=== PATIENT | female | born 2000 | race Caucasian/White ===

== ENCOUNTER 2024-08-08 11:22 | Emergency (ER) | payer BC, SELFPAY ==
[2024-08-08 11:47] VITALS: BP 124/73
--- NOTE | 2024-08-08 14:33 | ED.GENMED ---
History of Present Illness
General
Chief Complaint: Skin Problem
Source: patient
Time Seen by Provider: 08/08/24 14:15
History of Present Illness
History of Present Illness:
24-year-old female presenting emergency department for evaluation after sustaining a cut to her left lower leg about 3 weeks ago, went to urgent care who placed Dermabond on the area and gave the patient a weeks course of Keflex for infection
prevention, completed the medication 2 days ago but today felt that the area started to look a little bit more red again. Patient states that she was feeling unwell and feverish today and was concerned for possible infection. Patient did not check
her temperature prior to arrival. No other URI-like symptoms. No known sick contacts or recent travel.
Past History
Past History
ED Past Medical History: Other (Migraines, POTS, endometriosis)
ED Past Surgical History: Tonsilectomy and Other
Social History
Tobacco: Non-smoker
Alcohol: Occasional
Drug: None
Personal: Single
Living: with family
Review of Systems
Review of Systems
All Other Systems: ROS reviewed and negative except as documented in HPI and ROS
Phy Exam
Physical Exam
Physical Exam:
GENERAL: Alert , in no apparent distress
EYE: conjunctiva clear
Head: Normocephalic atraumatic
NECK: Supple,
ENT: mmm.
LUNGS: no acute respiratory distress
NEUROLOGICAL: Alert and oriented
SKIN: Warm and dry, small 7 mm abrasion with scab overlying with the borders having very slight erythema consistent with normal wound healing/mild inflammatory response
MSK: Warm and well perfused
PSYCH: Normal and appropriate interaction.
Scores
Heart Failure Risk
Heart Failure Risk Score: Not Applicable
Heart Score for Chest Pain Patients
STEMI patient?: Not applicable
Withdrawal Assessment of Alcohol
Withdrawal Assessment Completed?: Not applicable
Course
Orders/Labs/Results
Orders:
08/08/24 14:21
08/08/24 14:21
Vital Signs
Initial and Last Documented VS:
Initial Vital Signs
Temp Pulse Resp BP Pulse Ox
98.5 F 77 16 124/73 100
08/08/24 11:47 08/08/24 11:47 08/08/24 11:47 08/08/24 11:47 08/08/24 11:47
Last Documented Vital Signs
Temp Pulse Resp BP Pulse Ox
98.5 F 78 18 120/70 98
08/08/24 11:47 08/08/24 14:50 08/08/24 14:50 08/08/24 14:50 08/08/24 14:50
MDM/Problems Addressed
Differential Diagnosis Includes:
Well-healing abrasion, I do not have concern for cellulitis, question viral etiology for other flulike illness
MDM/Problems Addressed:
Otherwise well-appearing 24-year-old female presenting to the emergency department for evaluation of what she believes to be possible infection to the left lower extremity. The abrasion is well-healing, small scab and erythema is only along the
borders of the wound which appeared normal and without sign of infection. Initially offered the patient labs and COVID/flu testing which she initially agreed to but then told nursing she did not wish to have this and preferred to go home.
Counseled patient on wound care. Otherwise stable for discharge home.
*Pulse Oximetry
Patient hypoxic: no
*Critical Care Note
Total Time (30-74mins, 75-104mins- exclusive of procedures): Not Applicable
ED Attending Note
-
Portions of this chart may have been created with voice recognition software.� Occasional wrong word or��sound alike� substitutions may have occurred due to the inherent limitations of voice recognition software.
Discharge Plan
Departure
Patient Disposition: Home (Routine Discharge)
Date of Disposition: 08/08/24
Time of Disposition: 14:33
Patient with high blood pressure during this ER visit?: No
Discharge Problem:
Abrasion of left lower extremity
Instructions: Wound Care (DC)
Interventions
Interventions:
*Risk Screen - Suicide Last Done: 08/08/24 11:47
*General Assessment Last Done: 08/08/24 11:47
*Neglect/Abuse Screening Last Done: 08/08/24 11:47
*ED COVID-19 Vaccine History Last Done: 08/08/24 11:47
*Nursing Disposition Last Done: 08/08/24 14:50
ED-Skin Assessment Last Done: 08/08/24 12:51
Discharge Date and Time
Discharge Date/Time: 08/08/24 14:53
Print Language: AZERI
[2024-08-08 14:50] VITALS: BP 120/70
== END 2024-08-08 14:53 | disposition home or self-care (01) ==
LOC: EMR 11:22
PROVIDERS: EMERGENCY PHYSICIAN Emergency Medicine; FAMILY PHYSICIAN Physician Assistant
DX: S80.812A Abrasion, left lower leg, initial encounter (principal); W45.8XXA Other foreign body or object entering through skin, initial encounter
CPT/HCPCS: 99282

== ENCOUNTER 2024-09-09 05:52 | Emergency (ER) | payer BC, SELFPAY ==
[2024-09-09 05:57] VITALS: BP 120/80
[2024-09-09 06:18] VITALS: BMI 20.8
[2024-09-09 06:20] VITALS: BP 128/75
--- NOTE | 2024-09-09 06:52 | ED.GENMED ---
History of Present Illness
General
Chief Complaint: Cold/Flu/URI Symptoms
Source: patient
Exam Limitations: none
Time Seen by Provider: 09/09/24 06:43
History of Present Illness
History of Present Illness:
See MDM
Past History
Past History
ED Past Medical History: Other (Migraines, POTS, endometriosis)
ED Past Surgical History: Tonsilectomy and Other
Social History
Tobacco: Non-smoker
Alcohol: Occasional
Drug: None
Personal: Single
Living: with family
Phy Exam
Physical Exam
Physical Exam:
See MDM
Course
Orders/Labs/Results
Orders:
Orders
09/09/24 06:12
COVID-19 Antigen Urgent
Source: Nasal Swab
Influenza A+B Rapid Molecular Urgent
BELINDA Source: Nasal Swab
Specimen Description:
09/09/24 06:52
0.9% Sodium Chloride 1000 ml [Nss] 1,000 ml IV BOLUS
Dexamethasone Sod Phosphate [Decadron] 10 mg IV NOW STA
Ketorolac [Toradol] 30 mg IV NOW STA
Vital Signs
Initial and Last Documented VS:
Initial Vital Signs
Temp Pulse Resp BP Pulse Ox
98.7 F 126 26 120/80 99
09/09/24 05:57 09/09/24 05:57 09/09/24 05:57 09/09/24 05:57 09/09/24 05:57
Last Documented Vital Signs
Temp Pulse Resp BP Pulse Ox
98.4 F 120 19 104/59 98
09/09/24 07:27 09/09/24 07:15 09/09/24 07:15 09/09/24 07:00 09/09/24 07:15
MDM/Problems Addressed
Differential Diagnosis Includes:
HPI and MDM Narrative:
24-year-old female presenting for evaluation of persistent cough and congestion. Patient states has been ongoing for weeks. She went to urgent care and had a chest x-ray was placed on albuterol and doxycycline for presumed bronchitis. Patient
states she felt somewhat better but then symptoms have since gotten worse. Her friend at bedside was recently diagnosed with influenza. Patient is concerned that she may have the flu as well. She states her cough is productive in the morning but
becomes dry throughout the day. On exam, this is consistent with postnasal drip. Will start steroids. Will give Toradol for mild chills. Patient is tachycardic and clinically dry. IV fluids. She has no clinical evidence of dvt
Physical exam
General: Well appearing and non-toxic
HEENT: protecting airway. Dry mucous membranes. Postnasal drip
Neck: supple
CV: No evidence of cyanosis. Tachycardic
Resp: No accessory muscle use. Lungs clear. No wheezing
Abd: Non-distended
Extremities: No deformities. No unilateral leg edema or tenderness
Neuro: alert
Psych: Normal affect
Skin: Intact
Problems Addressed including Acute and Chronic Conditions affecting care:
1. Viral syndrome
Acuity: acute
Prognosis: stable
Details: Likely influenza. Given persistence of symptoms, will start steroids. She already finished course of Doxy
2. Dehydration
Acuity: acute
Prognosis: stable
Details: Will give IV fluids and reassess tachycardia
Updates
Patient found to be influenza positive. She is on the borderline of whether or not Tamiflu would be helpful. Given the side effect profile of Tamiflu, patient declined. Tachycardia improving with fluids and patient states she feels much better
Differential Diagnosis (but not limited to): Influenza, COVID, pneumonia
Testing considered: Chest x-ray but this was already performed and she finished a course of doxycycline and I do not hear focal wheezing or rhonchi
Drug therapy (if applicable): OTC meds, please see d/c instruction regarding Rx drugs
Amount and/or Complexity of Data Reviewed
Clinical info obtained from: Patient
External data reviewed: N/A
Labs I independently reviewed (but not limited to): Influenza positive
Radiology: N/A
Pulse Ox: not hypoxic
EKG independently reviewed: N/A
Toolmaker: Sinus tachycardia
Critical Care: N/A
Risk of Complication:
Social Determinants of health: Good social support
Discussed with other providers: N/A
Escalation of Care includes Admit/Obs: After being observed in the Emergency Department, pt stable for discharge.
Occasional wrong word or 'sound a like' substitutions may have occurred due to the inherent limitations of voice recognition software. Read the chart carefully and recognize, using context, where substitutions have occurred.
*Critical Care Note
Total Time (30-74mins, 75-104mins- exclusive of procedures): Not Applicable
ED Attending Note
-
Portions of this chart may have been created with voice recognition software.� Occasional wrong word or��sound alike� substitutions may have occurred due to the inherent limitations of voice recognition software.
Discharge Plan
Departure
Patient Disposition: Home (Routine Discharge)
Date of Disposition: 09/09/24
Time of Disposition: 08:12
Patient with high blood pressure during this ER visit?: No
Discharge Problem:
Influenza A
Instructions: Flu
Prescriptions:
New
prednisone 20 mg tablet
40 mg PO DAILY Qty: 10 0RF
Referrals:
Nathalie Kuhn PA [Family Provider] -
Activity Restrictions/Additional Instructions:
Please return for any worsening symptoms.
You may return at any time if you have further concerns.
Please follow up with your doctor at the first available appointment, preferably this week.
Thank you for choosing [facility].
Interventions
Interventions:
*Risk Screen - Suicide Last Done: 09/09/24 06:18
*General Assessment Last Done: 09/09/24 06:18
*Neglect/Abuse Screening Last Done: 09/09/24 06:18
ED- Fall Risk Assessment Last Done: 09/09/24 06:18
*ED COVID-19 Vaccine History Last Done: 09/09/24 06:18
ED- Pulmonary Assessment Last Done: 09/09/24 06:18
Discharge Date and Time
Print Language: LUXEMBOURGISH
[2024-09-09 07:00] VITALS: BP 104/59
[2024-09-09 07:08] LABS: COVID-19 Antigen Negative (Negative)
[2024-09-09] MEDS: NSS 1000 IV (07:14)
[2024-09-09] MEDS: TORADOL 30 MG IV (07:15)
[2024-09-09] MEDS: DECADRON 10 MG IV (07:15)
[2024-09-09 08:00] VITALS: BP 112/63
== END 2024-09-09 08:55 | disposition home or self-care (01) ==
LOC: EMR 05:52
PROVIDERS: EMERGENCY PHYSICIAN Student in an Organized Health Care Education/Training Program; FAMILY PHYSICIAN Physician Assistant
DX: J10.1 Influenza due to other identified influenza virus with other respiratory manifestations (principal)
CPT/HCPCS: 99284; 96374; 96375; 96361; 87502; 87811

== ENCOUNTER 2024-09-13 03:39 | Emergency (ER) | payer BC, SELFPAY ==
[2024-09-13 03:52] VITALS: BP 126/83
--- NOTE | 2024-09-13 06:25 | ED.GENMED ---
History of Present Illness
<Lexis Nava MD, Resident - Last Filed: 09/13/24 08:03>
General
Chief Complaint: Cold/Flu/URI Symptoms
Source: patient
Exam Limitations: none
Time Seen by Provider: 09/13/24 06:13
Nursing documentation reviewed up to this point in time: agreed with
History of Present Illness
History of Present Illness:
24yo F with PMH POTS, endometriosis who presents from home to ER for cough and flu-like symptoms. She has cough, chest pain that is worse with coughing, light headedness, generalized body aches. She has been feeling sick since around [place], and
was originally treated for bronchitis with doxycycline and albuterol inhaler from urgent care. She was seen in the ER here and tested positive for the flu on 09/09/24, and was prescribed oral prednisone. She has also been taking tylenol, ibuprofen,
mucinex as needed. Today she reports no change in symptoms and is concerned about pneumonia.
Past History
<Lexis Nava MD, Resident - Last Filed: 09/13/24 08:03>
Past History
ED Past Medical History: Other (Migraines, POTS, endometriosis)
ED Past Surgical History: Tonsilectomy and Other (exlap)
Patient has exhibited threatening behavior?: No
Social History
Tobacco: Non-smoker
Alcohol: Occasional
Drug: None
Personal:
Living: with family
Family History
Family History: Other (noncontributory)
Review of Systems
<Lexis Nava MD, Resident - Last Filed: 09/13/24 08:03>
Review of Systems
Allergies reviewed?: Yes
Constitutional: Reports fever, fatigue and chills
EENT: Reports runny nose; Denies sore throat
Respiratory: Reports cough and trouble breathing; Denies hemoptysis
Cardiac: Reports chest pain; Denies palpitations or syncope
ABD/GI: Reports no symptoms; Denies abdominal pain, nausea, vomiting, diarrhea, constipated, bloody stools or black stools
: Reports no symptoms
Musculoskeletal: Reports other (generalized body aches)
Skin: Reports no symptoms
Neurological: Reports no symptoms
Endocrine: Reports no symptoms
Hematologic/Lymphatic: Reports no symptoms
Psychiatric: Reports no symptoms
Phy Exam
<Lexis Nava MD, Resident - Last Filed: 09/13/24 08:03>
General Physical Exam
General Presentation: well appearing and no apparent distress
General age: appears stated age
General Skin: warm and dry
General Habitus: normal
General Mental: alert
General Hydration: appears well hydrated
Cardiovascular Exam
Cardiovascular Exam: regular rate/rhythm, no edema and no murmur
Pulmonary Exam
Pulmonary Exam: lungs clear, no respiratory distress, no crackles, no rhonchi, no wheezing and other (chest wall tender to palpation over sternum)
Oxygen Status: room air
Cough: non productive cough
Gastrointestinal Exam
Gastrointestinal Exam: non tender, soft and non distended
Neurological Exam
Neurological Exam: alert, oriented x3, no motor deficits, no sensory deficits and speech normal
Musculoskeletal Exam
Musculoskeletal Exam: other (calves symmetric bilaterally)
Course
<Lexis Nava MD, Resident - Last Filed: 09/13/24 08:03>
Orders/Labs/Results
Orders:
Orders
09/13/24 03:55
Electrocardiogram (*1) Urgent
Reason for Study: Shortness of Breath
EKG- Treatment ONCE
09/13/24 04:06
Chest [CR Chest - 2 Views ] Urgent
Comment: +flu
Reason For Exam: chest pain
Vital Signs
Initial and Last Documented VS:
Initial Vital Signs
Temp Pulse Resp BP Pulse Ox
98.2 F 78 16 126/83 99
09/13/24 03:52 09/13/24 03:52 09/13/24 03:52 09/13/24 03:52 09/13/24 03:52
Last Documented Vital Signs
Temp Pulse Resp BP Pulse Ox
98.2 F 78 16 126/83 99
09/13/24 03:52 09/13/24 03:52 09/13/24 03:52 09/13/24 03:52 09/13/24 03:52
<Herman Goldman, DO - Last Filed: 09/13/24 08:48>
Orders/Labs/Results
Orders:
Orders
09/13/24 03:55
Electrocardiogram (*1) Urgent
Reason for Study: Shortness of Breath
EKG- Treatment ONCE
09/13/24 04:06
Chest [CR Chest - 2 Views ] Urgent
Comment: +flu
Reason For Exam: chest pain
Vital Signs
Initial and Last Documented VS:
Initial Vital Signs
Temp Pulse Resp BP Pulse Ox
98.2 F 78 16 126/83 99
09/13/24 03:52 09/13/24 03:52 09/13/24 03:52 09/13/24 03:52 09/13/24 03:52
Last Documented Vital Signs
Temp Pulse Resp BP Pulse Ox
98.2 F 78 16 126/83 99
09/13/24 03:52 09/13/24 03:52 09/13/24 03:52 09/13/24 03:52 09/13/24 03:52
<Lexis Nava MD, Resident - Last Filed: 09/13/24 08:03>
MDM/Problems Addressed
Differential Diagnosis Includes:
influenza, bronchitis, pneumonia
no signs of dvt/pe
MDM/Problems Addressed:
24yo F with known influenza presenting with cough and flu-like symptoms
Chest xray clear, no signs of pneumonia
Suspect symptoms are due to flu, no indication for antibiotics
Stable for discharge home with supportive measures
Refill for albuterol inhaler sent to pharmacy
Discussed above with patient and at bedside-- they are understanding and agreeable with plan.
<Lexis Nava MD, Resident - Last Filed: 09/13/24 08:03>
*Critical Care Note
Total Time (30-74mins, 75-104mins- exclusive of procedures): Not Applicable
ED Attending Note
<Lexis Nava MD, Resident - Last Filed: 09/13/24 08:03>
-
Portions of this chart may have been created with voice recognition software.� Occasional wrong word or��sound alike� substitutions may have occurred due to the inherent limitations of voice recognition software.
<Herman Goldman, DO - Last Filed: 09/13/24 08:48>
ED Attending Note
Patient seen and examined by attending physician: Yes
I performed a history and physical exam of patient and discussed management with resident, I reviewed resident's note and agree with documented findings and plan of care.: Yes
ED Attending Note:
I reviewed and agree with history and treatment plan by Lexis Nava MD. My exam revealed
Physical Exam
General: no apparent distress, not acutely ill
Neck: supple. no meningeal signs. normal posterior pharynx
Heart: s1/s2 regular rate and rhythm, no murmur. equal radial
pulses.
HEENT: Pupils equal round reactive to light, EOMI
Lungs: no acute respiratory distress. clear bilaterally, cough
Abdomen: normal bowel sounds. not tender. no CVAT
Neuro: alert and oriented. no focal neurological deficits cranial nerves II through XII intact
Skin: no rash
Psychiatric: well kept. interactive and cooperative
Extremities: no edema. no calf tenderness. negative homans. good distal pulses
24-year-old female with influenza, with some bronchitis component. Albuterol prescription given. Patient stable for discharge.
Discharge Plan
Departure
Patient Disposition: Home (Routine Discharge)
Date of Disposition: 09/13/24
Time of Disposition: 06:35
Patient with high blood pressure during this ER visit?: No
Discharge Problem:
Influenza
Instructions: Flu in adults - ED discharge instructions
Prescriptions:
New
albuterol sulfate 90 mcg/actuation HFA aerosol inhaler
2 puff inhalation Q6H PRN (Reason: shortness of breath or wheezing) Qty: 8.5 0RF
No Action
prednisone 20 mg tablet
40 mg PO DAILY Qty: 10 0RF
Referrals:
Nathalie Kuhn PA [Family Provider] - Call in 1-3 days for appt (Call your Primary Care Provider to schedule appointment after being evaluated in the ER.)
Activity Restrictions/Additional Instructions:
You were seen in the Emergency Room for cough and flu-like symptoms. Your flu test was positive on 09/09/24.
Your chest xray was clear and did not show any signs of pneumonia.
You should continue supportive measures at home, resting, and staying hydrated.
Return to the Emergency Room for worsening symptoms or new concerns.
Call your Primary Care Provider to schedule an appointment after being seen in the ER.
Interventions
Interventions:
*General Assessment Last Done: 09/13/24 03:52
*ED COVID-19 Vaccine History Last Done: 09/13/24 03:52
*Nursing Disposition Last Done: 09/13/24 06:56
Discharge Date and Time
Discharge Date/Time: 09/13/24 06:56
Print Language: SENEGALESE
== END 2024-09-13 06:56 | disposition home or self-care (01) ==
LOC: EMR 03:39
PROVIDERS: EMERGENCY PHYSICIAN Emergency Medicine; FAMILY PHYSICIAN Physician Assistant
DX: J11.1 Influenza due to unidentified influenza virus with other respiratory manifestations (principal); G90.A Postural orthostatic tachycardia syndrome [POTS]; N80.9 Endometriosis, unspecified
CPT/HCPCS: 99283; 71046; 93005

== ENCOUNTER 2024-10-28 13:30 | Emergency (ER) | payer BC, SELFPAY ==
[2024-10-28 13:34] VITALS: BP 145/108
[2024-10-28 14:09] LABS: % Basophils 0.4 % (0-2); % Eosinophils 0.7 % (0-6); % Immature Granulocytes 0.1 % (0-0.5); % Lymphocytes 24.9 % (20.5-51.1); % Monocytes 5.6 % (1.7-9.3); % Neutrophils 68.3 % (42.2-75.2); Absolute Eosinophils 0.1 10^3/uL (0-0.7); Absolute Monocytes 0.5 10^3/uL (0.1-0.6); Absolute Neutrophils 5.5 10^3/uL (1.4-6.5); Hematocrit 40.1 % (37.0-47.0); Mean Corp Hgb Conc. 34.9 g/dL (33.0-37.0); Mean Corpuscular Hgb 29.5 pg (27.0-31.0); Mean Corpuscular Volume 84.6 fL (81.0-99.0); Mean Platelet Volume 9.1 fL (7.4-10.4); Nucleated Red Blood Cells % 0 %; Platelet Count 231 10^3/uL (130-400); Red Blood Cell Count 4.74 10^6/uL (4.20-5.40); Red Cell Dist. Width 13.2 % (11.5-14.5)
[2024-10-28 14:23] LABS: HCG, Serum Qualitative Screen Negative
[2024-10-28 14:27] LABS: ALT (SGPT) 32 U/L (0-35); AST (SGOT) 23 U/L (14-36); Albumin 4.8 g/dl (3.5-5.0); Alkaline Phosphatase 64 U/L (38-126); Blood Urea Nitrogen 12 mg/dl (7-17); Calcium 10.3 mg/dl (8.4-10.2); Carbon Dioxide 26 mmol/L (22-30); Chloride 104 mmol/L (98-107); Glucose 94 mg/dl (70-99); Potassium 3.9 mmol/L (3.5-5.1); Sodium 138 mmol/L (135-145); Total Bilirubin 1.2 mg/dl (0.2-1.3); Total Protein 7.7 g/dl (6.3-8.2); eGFR > 60.00
[2024-10-28 15:19] LABS: Troponin I < 0.012 ng/ml
== END 2024-10-28 14:56 | disposition left against medical advice (07) ==
LOC: EMR 13:30
PROVIDERS: EMERGENCY PHYSICIAN Emergency Medicine
DX: R56.9 Unspecified convulsions (principal); R07.89 Other chest pain; R68.84 Jaw pain; Z53.21 Procedure and treatment not carried out due to patient leaving prior to being seen by health care provider
CPT/HCPCS: 99281; 80053; 84484; 84703; 85025; 93005